=== PATIENT | female | born 1980 | race Caucasian/White ===

== ENCOUNTER 2019-10-25 07:54 | Outpatient (CLI) | payer OTHER ==
--- NOTE | 2019-10-25 10:40 | MRI ---
MR abdomen with and without IV contrast INDICATION: Liver lesion TECHNIQUE: Multiplanar, multisequence MR images were obtained of the abdomen with and without IV cont rast. Contrast: 12 cc MultiHance. COMPARISON: None. FINDINGS: Liver: There is a 3.2 x 2 cm T1 hypointense, T2 hyperintense lesion with peripheral nodular discontin uous enhancement within the left hepatic lobe on image 21 of series 4 is consistent with hemangioma. There is a similar signal intensity and enhancing lesion in segment 6 of the right hepati c lobe measuring 1 cm on image 32 of series 4 and in segment 5 of the right hepatic lobe on image 17 of series 4 measuring 9 mm. There are suspected flash filling hemangioma on image 43 of series 11 within the segment 6 of the right hepatic lobe, the medial left hepatic lobe on image 29 of series 11 and within segment 5 of the right hepatic lobe on image 56 of series 11, adjacent to the gallbladd er fossa. Gallbladder: Normal. Pancreas: Normal. Adrenal glands: Normal. Kidneys: Normal. Spleen: Normal. Spleen size: 11.2 cm. Lymphadenopathy or free fluid: None Vasculature: Appropriate flow voids are demonstrated. Bowel: Visualized bowel appears within normal limits. Osseous structures: No signal abnormality evident. IMPRESSION: 1. Multiple hepatic hemangioma, some which are flash filling.
== END 2019-10-25 07:55 | disposition home or self-care (01) ==
LOC: SCSMRI 07:54
PROVIDERS: ATTEND Family Medicine
DX: R16.0 Hepatomegaly, not elsewhere classified (principal); D18.03 Hemangioma of intra-abdominal structures
CPT/HCPCS: 74183

== ENCOUNTER 2020-06-20 09:07 | Outpatient (CLI) | payer OTHER ==
--- NOTE | 2020-06-20 09:59 | CT ---
CT abdomen and pelvis without and with IV contrast HISTORY: Hematuria. FINDINGS: Each renal collecting system, ureter, and the urinary bladder are decompressed without ston e evident. No filling defects are apparent within the urinary system on the delayed images. The lung bases are clear. A 2.0 cm low-density lesion within the lateral segment left liver lobe demo nstrates characteristics consistent with a hemangioma, as detailed on prior MRI. No renal lesions are apparent. No evidence of bowel obstruction or inflammation. Large amount of stool throughout the colon. Bone island noted at the right acetabulum. There are degenerative changes of the hips. IMPRESSION : No urinary tract abnormalities are demonstrated. Constipation.
== END 2020-06-20 09:08 | disposition home or self-care (01) ==
LOC: SCSCT 09:07
PROVIDERS: ATTEND Urology
DX: R31.29 Other microscopic hematuria (principal); R39.15 Urgency of urination; R30.0 Dysuria; K59.00 Constipation, unspecified
CPT/HCPCS: 74178